=== PATIENT | female | born 1990 | race Caucasian/White ===

== ENCOUNTER 2023-03-20 15:50 | Outpatient (CLI) | payer BC, SELFPAY | END 2023-03-20 15:51 | disposition home or self-care (01) | PROVIDERS: Visit Provider Advanced Practice Midwife | DX: Z34.90 Encounter for supervision of normal pregnancy, unspecified, unspecified trimester (principal) | CPT/HCPCS: 86592; 86703; 86704; 86706; 86762; 86787; 86803; 86850; 86900; 86901; 87086; 87340 ==

== ENCOUNTER 2023-05-16 12:50 | Outpatient (CLI) | payer BC, SELFPAY ==
--- NOTE | 2023-05-16 13:00 | CRLHL7_ITS ---
For Patients: As a result of the Century Cures Act, medical imaging exams and procedure reports are released immediately into your electronic medical record. You may view this report before your referring provider. If you have questions, please contact your health care provider. HISTORY: anatomic survey. COMPARISON: None available of this gestation. TECHNIQUE: Ultrasound examination of the is performed with transabdominal technique. FINDINGS: A single intrauterine gestation is seen in cephalic presentation with regular cardiac activity at 141 beats per minute. The placenta is anterior and is free of the cervical os. The placental grade is 0 and the amniotic fluid volume is normal. Single deepest vertical pocket: Normal at 4.0 cm. The cervix is nondilated and is normal in length, measuring 4.0 centimeters. BPD: 4.8 cm 20 weeks 4 days HC: 17.9 cm 20 weeks 3 days AC: 18.9 cm 21 weeks 6 days FL: 3.4 cm 20 weeks 5 days The estimated age by ultrasound is 20 weeks 6 days, with an estimated date of delivery of 09/27/2023. This correlates well with the clinical age of 20 weeks 0 days. The ultrasound ratios are normal. The estimated weight of 410 grams is at the 97th percentile based on the clinical dates. The anatomic survey demonstrates normal appearing intracranial structures with a normal septum pellucidum and normal cerebellum. The nuchal thickness is normal at 4 mm, and the lateral ventricle is normal in diameter at 7 mm. The upper lip, 4 chamber heart, left and right ventricular outflow tracts, diaphragm, stomach, cord insertion site, 3-vessel cord, kidneys, bladder and spine are normal in appearance. IMPRESSION: Single intrauterine gestation in cephalic presentation with regular cardiac activity. Estimated gestational age is 20 weeks 6 days. The estimated weight of 410 grams is at the 97th percentile based on the clinical dates. Dictated by Saurav Alejo MD @ 05/20/2023 11:07:22 AM (Electronically Signed)
== END 2023-05-16 12:51 | disposition home or self-care (01) ==
PROVIDERS: Visit Provider Advanced Practice Midwife
DX: Z34.92 Encounter for supervision of normal pregnancy, unspecified, second trimester (principal); Z3A.20 20 weeks gestation of pregnancy
CPT/HCPCS: 76805

== ENCOUNTER 2023-07-11 14:05 | Outpatient (CLI) | payer BC, SELFPAY | END 2023-07-11 14:06 | disposition home or self-care (01) | LOC: NFLDREF 07-16 11:45 | PROVIDERS: Visit Provider Advanced Practice Midwife | DX: Z34.92 Encounter for supervision of normal pregnancy, unspecified, second trimester (principal) | CPT/HCPCS: 86592 ==

== ENCOUNTER 2023-09-11 15:10 | Outpatient (CLI) | payer BC, SELFPAY | END 2023-09-11 15:11 | disposition home or self-care (01) | LOC: NFLDREF 09-13 05:42 | PROVIDERS: Visit Provider Advanced Practice Midwife | DX: Z34.83 Encounter for supervision of other normal pregnancy, third trimester (principal); Z3A.36 36 weeks gestation of pregnancy | CPT/HCPCS: 87081; 87653 ==

== ENCOUNTER 2023-10-04 22:59 | Inpatient (IN) | payer BC, SELFPAY ==
[2023-10-04 23:24] VITALS: BP 138/86; PULSE 77
[2023-10-04 23:25] VITALS: RESP 18
[2023-10-04 23:39] VITALS: BP 130/83; PULSE 86
[2023-10-04 23:40] VITALS: RESP 18; TEMP 36.8
--- NOTE | 2023-10-04 23:42 | P.LDBA_ITS ---
Subjective History of Present Illness Date Seen: 10/04/23 Narrative: Lynne is being admitted to Labor and Delivery for active labor. She is a 33 year old at 40.1 weeks gestation. Her full history and physical was dictated by Humberto Mckeon CNM on 10/02/23. Please see this for details. She was actively pushing when I entered her room. Specific Issues/Plans Christian. Children: Yessi, Magda, Nabor. Baby: Girl! no first trimester US, certain of dates H&P done by Humberto Mckeon CNM on 10/02/23 1. Hx abnormal Pap 2019 LSIL then negative colp 06/27/22 pap NILM neg HPV consider pap PP 2. FOB had brother with Thanatophoric Dysplasia () -declined genetic screening Covid: declines Flu: declines TDAP: Declined on 08/07/23 RSV: Rhogam: O + 32 wk Mental Health: 34 wk Hgb: H&P: OB - Problem Based A/P Additional Plan (1) 40 weeks gestation of : Status: Acute (2) Pain during labor: Status: Acute Plan Assessment:?? at 40.1 weeks gestation?? GBS negative? Patient is coping well with challenges of labor.?? Labor type: Spontaneous, Active labor? FHR 125 moderate variability complicated by: 1. Hx abnormal Pap 2019 LSIL then negative colp 06/27/22 pap NILM neg HPV consider pap PP 2. FOB had brother with Thanatophoric Dysplasia () -declined genetic screening Plan:?? * ?Admit to L & D? * IV access: not needed at this time * Monitoring per policy: continuous ? * Candidate for analgesia of choice.? Planning nothing for pain management * Desires waterbirth.? Consent signed and Hep C negative * Expectant management at this time ? * Patient encouraged to reposition and ambulate to promote physiologic labor and . * Anticipate ? Delivery/Labor/Induction Plan Plan: expectant management OB Exam Physical Exam Vital signs: Pulse Resp BP 86 18 130/83 10/04/23 23:39 10/04/23 23:25 10/04/23 23:39 Narrative: Vitals Reviewed Constitutional:? Alert and oriented x3 HEENT:? Normocephalic, atraumatic Neck:? Supple Lungs:? Clear to auscultation bilaterally Heart:? Regular rate and rhythm, no murmur, rub or gallop Abdomen:? Soft, nontender, and gravid. Vertex by Damaso's, confirmed with cervical exam. Extremities:? No edema or erythema Cervix: Assumed complete with pushing NST: unable to obtain, pt delivered shortly after arrival, moderate variability, FHR 125 Detailed Labor and Delivery Exam Patient Gravid: Yes
--- NOTE | 2023-10-04 23:49 | W.PM.OBVAGDE ---
OB Procedure Vag Delivery Mother Details Mother Details: The patient is a 33 year-old, 4, Para 3, admitted on 10/04/23 at 40.1 Days gestation. : 4 Para: 4 Weeks Gestation: 40.1 Admission Date: 10/04/23 Additional Details Amniotic Membrane Status: SROM Amniotic Membrane Rupture Date: 10/04/23 Amniotic Membrane Rupture Time: 23:09 Amniotic Membrane Fluid Description: Clear Analgesia/Anesthesia Type: None Waterbirth: No Pitcoin: No Intrapartal Events: Precipitous Labor <3 Hrs Labor Onset: 21:00 Complete: 23:09 Pushin:09 Heart: heart tones during second stage were continuously monitored, moderate variability with deceleration just before delivery to 60's. Delivery Details Delivery Date: 10/04/23 Delivery Time: 23:11 Route of delivery: Infant Gender: Female Viability: Alive; Heart Rate Present Position at Delivery: OA Delivery Details: 33?y.o?at 40.1 weeks.? Lynne arrived in active labor at 8cm. She was moved to a labor room and progressed quickly. On my arrival she was in semi fowlers position and had just had SROM for clear fluid. There was a deceleration of the FHR to 60's and she was turned to hands and knees and then delivered with the next contraction. ? She became complete at 2309.??She pushed in hands and knees positions.? Spontaneous vaginal delivery at 2311 of?a viable?female .??Delivered in vertex OA position.??Shoulders delivered easily.? Spontaneous cry noted.?? placed on maternal abdomen.??Cord?was clamped and cut after a 5+ minute delay.??Nose and mouth were bulb suctioned.? Shoulder dystocia: no? Nuchal cord: no? Meconium stained?fluid: no? Water : no? ? ? 8 at 1 minute and 8 at 5 minutes.? weight was pending. ? Placenta delivered spontaneously and?complete?at 2322 with a?3 vessel?cord.?? Bleeding controlled with fundal massage.? ? Mother and were stable after delivery.? ? Lacerations:? ??1st degree laceration, not bleeding, not repaired?with shared decision making. ? Bleeding?post delivery?was: minimal. ?The fundus was firm to palpation.? Blood loss: 150?mL.? Blood loss measurement type: QBL? ? ? Sponge,?lap?and needles counts are correct.? Mother and were stable after delivery.? 1 Minute Interval Total Score: 8 5 Minute Interval Total Score: 8 Additional Details Shoulder Dystocia: No Placenta Delivery Time: 23:22 Placental Delivery Description: Spontaneous Procedure Done: Global Blood Loss: 150 Laceration: Perineal - 1st Degree (not repaired) Blood Loss Measurement Type: QBL Bakri Used: No Sponge/Need Count Correct: Yes Cord Vessel Description: 3 Vessels Event Summary Status: Mother and infant were stable after delivery. Disposition: floor
[2023-10-04 23:55] VITALS: BP 138/62; PULSE 86; RESP 18
[2023-10-05] VITALS (14 sets, daily range): BP systolic 93–124; BP diastolic 58–77; PULSE 63–89; RESP 16–22; TEMP 36.5–37.4; O2SAT 96–98; BMI 29.7
--- NOTE | 2023-10-05 16:19 | PM.OBPNVD1 ---
OB - PN:Subj Subjective Date Seen: 10/05/23 Patient comments OB post-: no complaints, pain well controlled, tolerating diet and flatus present Coyle status: and doing well Coyle feeding status: exclusively Narrative: Complications:? none? The patient feels well.? The pain is well controlled with current medications.?She is having some cramping and is using a Kpad to help with this pain. Encouraged to consider ibuprofen to help also. She has no new complaints.? Urinary output is adequate and she is voiding without difficulty.? Has a good appetite, is tolerating a general diet, is passing flatus, and has not had a bowel movement.? Has scant amount of rubra lochia.? She is ambulating well.?She is and feels that it is going well. She was tearful but could not name a reason why but did state that has been very tearful after all of her deliveries. Encouraged a nap and asking for help from the nurses if needed. OB - PN: Obj Exam Physical Exam: Vital signs: Temp Pulse Resp BP Pulse Ox O2 Del Method 97.7 F 71 16 106/66 98 Room Air 10/05/23 13:25 10/05/23 13:25 10/05/23 13:25 10/05/23 13:25 10/05/23 13:25 10/05/23 13:25 Narrative: GENERAL APPEARANCE:? normal affect, alert, no distress? MOOD:? tearful but appropriate? CHEST:? clear to auscultation and percussion? HEART:? regular rate and rhythm? ABDOMEN:? soft, non-tender the uterine fundus is U/2 and is appropriate for the stage of recovery.? PERINEUM:? mild edema of the perineum, there is a 1st degree laceration that is healing well.? EXTREMITIES:? normal and no edema? OB - PN: A/P Delivery Assessment and Plan (1) Lactating mother: Status: Acute (2) care following vaginal delivery: Status: Acute Plan day: 1 Plan: routine care
[2023-10-06 05:12] VITALS: BP 128/89; PULSE 75; RESP 16; TEMP 36.8; O2SAT 97
[2023-10-06 08:40] VITALS: BP 130/90; PULSE 89; RESP 16; TEMP 36.7; O2SAT 97
--- NOTE | 2023-10-06 08:41 | PM.OBDSVD1 ---
DS: Providers Provider Date Seen: 10/06/23 Date of admission: 10/04/23 22:59 Primary care physician: Not a Local Provider Admitting Clinician: Laura Mckeon CNM Attending Physician on discharge: Laura Mckeon CNM Date of Discharge: 10/06/23 DS: Diagnosis Discharge Diagnosis (1) care following vaginal delivery: Status: Acute (2) Lactating mother: Status: Acute Exam Narrative: Exam Narrative: GENERAL APPEARANCE:? normal affect, alert, no distress? MOOD:? tearful and somewhat flat affect CHEST:? clear to auscultation and percussion? HEART:? regular rate and rhythm? ABDOMEN:? soft, non-tender the uterine fundus is U/2 and is appropriate for the stage of recovery.? PERINEUM:? mild edema of the perineum, there is a 1st degree that is healing well.? EXTREMITIES:? normal and no edema? Const: Vital Signs, click to edit/add: Vital Signs - 24 hr 10/05/23 09:40 10/05/23 13:25 10/05/23 16:50 Temperature 97.9 F 97.7 F 97.9 F Pulse Rate [Pulse Oximeter] 73 71 89 Respiratory Rate 16 16 16 Blood Pressure [Le ft Arm] 114/77 106/66 113/69 Pulse Oximetry 97 98 96 Oxygen Delivery Me thod Room Air Room Air Room Air 10/05/23 20:48 10/06/23 05:12 Temperature 98.8 F 98.3 F Pulse Rate [Pulse Oximeter] 85 75 Respiratory Rate 22 16 Blood Pressure [Le ft Arm] 109/67 128/89 Pulse Oximetry 97 97 Oxygen Delivery Me thod Room Air Room Air Documenting provider has reviewed patient's vital signs: yes OB - DS: Summary Hospital Course Hospital Course: The patient is a 33 year old G 4 P 4 at 40.1 weeks gestation that was admitted to the Center on 10/04/23 for active labor. She had an uncomplicated, precipitous vaginal delivery. She delivered a viable female infant. She is breast feeding. the patient has done well. Her pain is well controlled with current medications.? She has no new complaints.? Urinary output is adequate and she is voiding without difficulty.? Has a good appetite, is tolerating a general diet, is passing flatus, and has not had a bowel movement.? Has small amount of rubra lochia.? She is ambulating well. she is unsure what she is planning for PP control but will likely do condoms. Her affect seems flat today and she is tearful. She denies concerns with her mood at this time. Encouraged her to reach out with concerns or if her mood is not improving. Encouraged her to try to get a stretch of uninterrupted sleep if possible. Peripartum Data Infant delivery method: Vaginal Laceration description: Perineal - 1st Degree Episiotomy description: None complications: none Gender: Female Infant Discharge Plan: Home Status at Discharge Functional status at discharge: independent ambulation Overall status at discharge: patient is progressing back to baseline Time Spent with Patient Time attestation: Total time spent providing and/or coordinating discharge services: Discharge Plan Discharge Disposition: Home, Self-Care Date of Admission: 10/04/23 22:59 Attending Provider on Discharge: Luiza Reid Primary Care Provider: Provider,Not a Local Condition: Stable Anticipated Discharge Date/Time: 10/06/23 10:00 Discharge Medications: Continued PNV 119-iron fum-folic acid 29 mg iron- 1 mg tablet 1 tab PO DAILY Discharge Orders: Discharge Order (Routine); Ordered 10/06/23 Ordered By: Luiza Reid Consulting provider completed their portion of the discharge: Yes Patient Education: OB Vaginal/Breast Feeding Additional Instructions: Discharge instructions were reviewed with the patient including signs and symptoms of infection and home going medications.? Lifting Restrictions: 20 pounds for 6? weeks? ?? Do not drive while taking narcotic pain meds.? Off Work or School for 6 weeks.? ?? Symptoms to report to doctor:? -Bleeding that saturates more than one pad per hour? -Passing clots larger than the size of a golf ball? -Pain not relieved by prescribed medication? -Fever above 100.4 degrees Fahrenheit? -A foul vaginal odor? -Difficulty in emotions, mood and functions? -Thoughts of hurting yourself and/or ? -Painful, reddened area in your breast? -Any drainage, redness or tenderness in your IV/epidural site? -Severe headache that doesn't improve after taking medications? -Changes in vision, including temporary loss of vision, blurred vision, and/or light sensitivity? -Upper abdominal pain (usually under ribs on the right side)? -Decrease in urination or painful, frequent urinating? -Chest pain? -Shortness of breath? -Tenderness or pain with redness and/swelling in the calf(s) of your leg? ?? Follow Up in clinic in 2 and 6 weeks.? ?? consultation services are available to all mothers and babies for the first year after delivery.? To make an appointment, please call [phone].? Activity Level: Activity as Tolerated Discharge Diet: Regular Follow Up Appointments: [facility] [Provider Group] Provider,Not a Local [Primary Care Provider] - Forms: MyHealth Info Instructions
[2023-10-06 14:25] VITALS: BP 115/76; PULSE 82; RESP 16; TEMP 36.9; O2SAT 97
== END 2023-10-06 16:20 | disposition home or self-care (01) | DRG 560 ==
LOC: OB OUT 22:59 → OB 22:59
PROVIDERS: Admitting Provider Advanced Practice Midwife; Visit Provider Advanced Practice Midwife
DX: O70.0 First degree perineal laceration during delivery (principal); Z3A.40 40 weeks gestation of pregnancy; Z37.0 Single live birth
CPT/HCPCS: 86592